=== PATIENT | male | born 1990 | race Caucasian/White ===

== ENCOUNTER 2017-02-22 02:23 | Emergency (ER) | payer SELFPAY ==
[~2017-02-22] VITALS: Ht 170.2 cm; Wt 0.9 kg
[2017-02-22 02:33] VITALS: BP 160/100
--- NOTE | 2017-02-22 04:25 | NUR ---
PATIENT LEFT WITHOUT BEING SEEN BY DR. MARTÍNEZ. NO FURTHER CARE PROVIDED FOR PATIENT.
== END 2017-02-22 04:25 | disposition left against medical advice (07) ==
LOC: MED 02:23
DX: R10.9 Unspecified abdominal pain (principal); Z53.21 Procedure and treatment not carried out due to patient leaving prior to being seen by health care provider